=== PATIENT | male | born 2000 | race Caucasian/White ===

== ENCOUNTER 2024-12-27 10:05 | Emergency (ER) | payer OTHER, SELFPAY ==
[2024-12-27 11:56] LABS: BASO # 0.1 10^3/uL (0.0-0.2); BASO % 0.4 % (0.0-1.0); EOS # 0.1 10^3/uL (0.0-0.5); EOS % 0.5 % (0.0-3.0); LYMPH # 0.9 10^3/uL (1.5-5.0); LYMPH % 5.0 % (24.0-44.0); MONO # 1.7 10^3/uL (0.0-0.8); MONO % 10.1 % (2.0-8.0); NEUTROPHILS # 14.3 10^3/uL (1.5-8.5); NEUTROPHILS % 83.6 % (36.0-66.0); PLATELET COUNT, AUTOMATED 336 10^3/uL (150-450)
[2024-12-27 12:01] LABS: ERYTHROCYTE SEDIMENTATION RATE 37 mm/hr (0-15)
[2024-12-27] MEDS ORDERED: ISOVUE-370 76% 100 ML VIAL As Ordered ONE (12:31)
[2024-12-27] MEDS: AMPICILLIN SOD/SULBACTAM SOD 3 GM in DEXTROSE 5% (D5W) MINI-BAG PLU 100 ML IV ONE (13:40)
[2024-12-27] MEDS ORDERED: HOME MED LIST COMPLETE! XX SCH (16:55)
[2024-12-27] MEDS ORDERED: NS (Normal Saline) 0.9% 1,000 ML IV ONE (17:10)
[2024-12-27 17:29] VITALS: BP 143/66; TEMP 98.1; O2SAT 98
[2024-12-27] MEDS ORDERED: AMOX875T2 PO (17:39)
== END 2024-12-27 17:54 | disposition left against medical advice (07) ==
LOC: M ED 10:56
DX: K12.2 Cellulitis and abscess of mouth (principal); J45.909 Unspecified asthma, uncomplicated; F31.9 Bipolar disorder, unspecified; F90.9 Attention-deficit hyperactivity disorder, unspecified type; F12.10 Cannabis abuse, uncomplicated; Z88.2 Allergy status to sulfonamides; Z79.2 Long term (current) use of antibiotics; Z53.9 Procedure and treatment not carried out, unspecified reason
CPT/HCPCS: 36415; 70491; 80047; 85025; 85652; 86140; 87040; 87077; 87154; 87186; 87880; 96365; 96366; 96375; 99284; J0295; J1100; Q9967